=== PATIENT | female | born 1995 | race Caucasian/White ===

== ENCOUNTER 2018-10-17 18:35 | Emergency (ER) | payer MEDICAID, SELFPAY ==
[2018-10-17 18:38] VITALS: BP 136/89; PULSE 112; RESP 18; TEMP 36.8; O2SAT 99
[2018-10-17 18:46] VITALS: RESP 18
--- NOTE | 2018-10-17 19:56 | ED.GENADUL_ITS ---
Discharge Plan Disposition Patient Disposition: HOME Condition: Fair Discharge Details Chief Complaint: GenMedical Clinical Impression: Strep pharyngitis Primary Care Provider: Josiane Eisenberg ED Provider: Zandra Pineda Home Meds and New Rx's Prescriptions: New amoxicillin 500 mg tablet 500 mg PO BID Qty: 20 RF: 0 Continued metformin [Glucophage] 500 mg tablet 500 mg PO BID Qty: 60 RF: 1 Discharge Instructions Instructions: Strep Throat (ED) Additional Instructions: Encourage hydration. Tylenol and ibuprofen as needed for discomfort. Take amoxicillin as prescribed, even if symptoms improve please take the entire course. You may use warm water and honey to help with sore throat as well. If you develop increased pain, inability stay hydrated, increased swelling or other new/worsening symptoms please seek care urgently once again Referrals: Josiane Eisenberg MD [Primary Care Provider] - Discharge Data Discharge Date/Time-TO BE ENTERED AT DEPARTURE: 10/17/18 20:55 Medical Decision Making Patient is a 23-year-old female presents today with chief complaint sore throat. She reports symptoms initially began approximately 1 week ago but had been resolved over the past 4 days. States that when she woke this morning the sore throat had returned and was much worse than previous. Has had subjective fevers. States she has been trying to hydrate although finds this painful. States that she has had some congestion and some postnasal drip but no cough. Denies any ear pain. No chest pain shortness of breath. On exam, she has bilateral tonsillar swelling, erythema and exudate. Uvula is midline, no evidence of peritonsillar mass, no swelling of the tongue. Rapid strep +, UPT - Encouraged hydration. Patient will be placed on amoxicillin. We discussed new/worsening symptoms when to seek care urgently once again. Advise follow-up with primary care if not improving over the next week. Advised that she is contagious, advised that she replace her toothbrush. All of her questions and concerns were addressed and she is in agreement with this plan HPI General Mode of arrival: ambulatory . Date/Time Provider Initiated Documentation: 10/17/18 19:50 . Limitations to Documentation: no limitations . Information obtained by: patient and RN notes reviewed . History of Present Illness 23 year old F presents to the emergency department with the chief complaint of sore throat, described as moderate, with intensity rated at 6. Quality is described as burning, and is localized to the mouth. Patient reports no radiation. Patient started experiencing this day(s) and it has been constant. No relieving factors improve symptom(s), Eating worsens symptoms . Patient notes fever/chills and loss of appetite; denies cough, nausea/vomiting and rash. Patient did receive the following treatments prior to arrival, none Related Data Home Medications Medication Instructions Recorded Confirmed metformin 500 mg tablet 500 mg PO BID #60 tab 02/13/18 02/13/18 amoxicillin 500 mg PO BID #20 tab 10/17/18 Previous Rx's Medication Instructions Recorded metformin 500 mg tablet 500 mg PO BID #60 tab 02/13/18 amoxicillin 500 mg PO BID #20 tab 10/17/18 Allergies Allergy/AdvReac Type Severity Reaction Status Date / Time No Known Allergies Allergy Unverified 02/13/18 15:34 General Stated Complaint: GenMedical ABBI: 4 Review of Systems Constitutional Reports as per HPI, Denies chills, Reports fatigue, Reports fever(s), Denies headache(s) and Reports poor appetite Eyes Reports as per HPI, Denies eye discharge and Denies irritation ENT Reports as per HPI, Denies otalgia, Denies headache(s), Denies lip swelling, Denies nasal discharge, Reports post nasal drip, Denies sinus pain, Denies sinus pressure, Reports sore throat, Denies throat swelling and Denies tongue swelling Cardiovascular Reports as per HPI, Denies chest pain, Denies dyspnea and Denies dyspnea on exertion Respiratory Reports as per HPI, Denies cough, Denies dyspnea, Denies dyspnea on exertion and Denies wheezing Gastrointestinal Reports as per HPI, Denies abdominal pain, Denies change in bowel habits, Denies nausea and Denies vomiting Integumentary/Breasts Reports as per HPI and Denies rash Neurologic Reports as per HPI and Denies headache(s) Endocrine Reports fatigue Allergic/Immunologic Denies lip swelling, Denies throat swelling, Denies tongue swelling and Denies wheezing [facility] Medical History Headache (Acute) History of pre-eclampsia (Acute) Abnormal uterine bleeding Surgical History History of delivery (Chronic) wisdom teeth Family History Father Essential hypertension Mother Depression with anxiety Asthma Social History Smoking/Tobacco Use Status: Current-Occasional Tobacco Type: cigarettes Second Hand Exposure: Yes Alcohol Intake: current Alcohol Intake frequency: holidays/special occasions only Drug use: Rarely Substance use type: does not use and marijuana Adopted: No Household members: significant other and other Details: pt and boyfriend Wali Pets and animals: No Seatbelt use: always Do you feel safe at home: Yes Do you feel safe in your relationship?: Yes Female Reproductive History Menstrual control method: none History History 1 Para Hx # Term Pregnancies 1 Multiple births Hx # Pregnancies Ectopic pregnancies AB induced Hx Number of Living Children AB spontaneous Exam Const General: cooperative, healthy appearing, comfortable, no acute distress, well developed and well groomed Nutritional Appearance: average body habitus and well nourished Orientation: alert and awake HENMT Head: normal to inspection, normocephalic and atraumatic Ears: hearing grossly normal bilaterally, external ears normal and TM's normal bilaterally General nose exam: external nose normal and nares normal Face and sinus: normal facial exam, sinuses nontender and face symmetric Mouth: oral mucosae normal, lip normal, tongue normal, oropharynx normal and moist mucous membranes Teeth and gingiva: dentition normal Throat: uvula midline, abnormal tonsil bilaterally erythema, exudates and hypertrophy, no peritonsillar masses and postnasal drainage Eyes General: appearance normal, both eyes and all related structures Neck Neck: normal visual inspection, full ROM, no lymphadenopathy and no meningeal signs Resp Effort & Inspection: normal respiratory effort, able to speak in complete sentences and no respiratory distress Auscultation: clear to auscultation bilaterally, no rales, no rhonchi and no wheezes Cardio Rate: regular rate Rhythm: regular rhythm Heart Sounds: S1 normal and S2 normal Skin General skin exam: no rashes or lesions noted Neuro General: alert and awake Cognition: normal cognition Speech: speech normal Gait: normal gait Psych Appearance: grossly normal and well kempt Mental Status: mental status grossly normal Speech and Movement: speech and movement normal Course Vital Signs Temperature 36.8 C 10/17/18 18:38 Pulse 112 H 10/17/18 18:38 Respiratory Rate 18 10/17/18 18:38 Blood Pressure 136/89 10/17/18 18:38 Pulse Oximetry 99 10/17/18 18:38 Temperature 36.8 C 10/17/18 18:38 Temperature Source Tympanic 10/17/18 18:38 Pulse 112 H 10/17/18 18:38 Respiratory Rate 18 10/17/18 18:46 Respiratory Effort Non-Labored 10/17/18 18:46 Respiratory Depth Normal 10/17/18 18:46 Respiratory Pattern Normal 10/17/18 18:46 Blood Pressure 136/89 10/17/18 18:38 Blood Pressure Position Sitting 10/17/18 18:38 Pulse Oximetry 99 10/17/18 18:38 Oxygen Delivery Method Room Air 10/17/18 18:38 Oxygen Flow Rate 0 10/17/18 18:38 Pain Level 6 10/17/18 18:38 Lab/Test Results Lab/Test Results: POC Strep Test-DAYDAY(Rapid) Start: 10/17/18 19:43 Freq: Status: Active Protocol: Document 10/17/18 19:55 [place] (Rec: 10/17/18 19:55 [place] [id number]) Strep test-DAYDAY(Rapid)-POC POC-Strep test-DAYDAY (Rapid) Positive POC-Strep test-DAYDAY (Rapid) Positive
[2018-10-17] MEDS: Amoxicillin 500 MG CAP 1000 MG PO (20:54)
== END 2018-10-17 20:55 | disposition home or self-care (01) ==
PROVIDERS: Emergency Provider Physician Assistant; PCP Family Medicine
DX: J02.0 Streptococcal pharyngitis (principal)
CPT/HCPCS: 81025; 87880; 99283

== ENCOUNTER 2019-01-14 14:51 | Outpatient (REF) | payer MEDICAID, SELFPAY ==
[2019-01-16 13:45] LABS: Chlamydia Result Negative; GC Result Negative; Specimen Description URINE
== END 2019-01-14 15:11 ==
LOC: LBN 14:51
PROVIDERS: PCP Family Medicine; Visit Provider Nurse Practitioner Women's Health
DX: Z11.3 Encounter for screening for infections with a predominantly sexual mode of transmission (principal)
CPT/HCPCS: 87491; 87591

== ENCOUNTER 2019-01-25 21:29 | Emergency (ER) | payer MEDICAID, SELFPAY ==
[2019-01-25 21:35] VITALS: BP 145/95; PULSE 112; RESP 18; TEMP 36.8; O2SAT 100
--- NOTE | 2019-01-25 21:47 | ED.GENADUL_ITS ---
Discharge Plan Disposition Patient Disposition: HOME Condition: Stable Discharge Details Chief Complaint: Vascular Clinical Impression: Elevated BP without diagnosis of hypertension Primary Care Provider: Josiane Eisenberg ED Provider: Donis Almanza Home Meds and New Rx's Prescriptions: Continued Nexplanon 68 mg Implant 1 SUBDERMAL RF: 0 Discharge Instructions Additional Instructions: Follow up as scheduled tomorrow with your primary care provider if you develop severe chest pain/pressure, difficulty breathing, weakness, or feel more ill return to the emergency department for reevaluation if you have discomfort from the nexplanon in 1-2 weeks see your obgyn provider Medical Decision Making 23 yo female who denies chronic medical problems comes in with high blood pressure. She has had high blood pressure since September intermittently. She came in tonight because she checked it at home and her bp was 140 so came here. She has no symptoms and has not had any chest pain, dyspnea, n/v, headache, weakness. she has normal neuro exam. Given no symptoms and well appearance do not feel further workup for her htn indicated. HAs an appt tomorrow with her pcp, advised to keep this and if symptoms develop to return to the emergency department Differential Diagnosis essential htn, white coat htn HPI General Mode of arrival: ambulatory . Date/Time Provider Initiated Documentation: 01/25/19 21:29 . Limitations to Documentation: no limitations . Information obtained by: patient . History of Present Illness 23 year old F presents to the emergency department with the chief complaint of high blood pressure, described as moderate, Patient started experiencing this month(s) (5) and it has been intermittent. No relieving factors improve symptom(s), No exacerbating factors reported . Patient notes no other symptoms.. Patient did receive the following treatments prior to arrival, none Related Data Home Medications Medication Instructions Recorded Confirmed Nexplanon 1 SUBDERMAL 01/25/19 Allergies Allergy/AdvReac Type Severity Reaction Status Date / Time No Known Allergies Allergy Unverified 01/25/19 21:40 General Stated Complaint: Vascular ABBI: 4 Review of Systems Review of Systems All systems reviewed & are unremarkable except as noted in HPI and below Constitutional Denies chills, Denies fever(s) and Denies weakness Cardiovascular Denies chest pain and Denies dyspnea Respiratory Denies dyspnea Gastrointestinal Denies abdominal pain, Denies nausea and Denies vomiting Musculoskeletal Denies joint swelling Neurologic Denies weakness PFSH Medical History Abnormal uterine bleeding Irreg menes. Spotting 2-3d ~ every month. Started on Glucophage 06/2016 and became . Elevated BP without diagnosis of hypertension (Acute) Headache (Acute) Onset 02/2017 after bilateral ear infection and severe pre-eclampsia. Daily photo-phobic H/A. Referral to [facility] Neuro prior to . History of pre-eclampsia (Acute) 02/2017. Severe BP. IOL at 34w EGA. intol of labor. PC/S. Rx with antihypertensive med Presence of subdermal contraceptive implant (Acute) Surgical History (Updated 01/14/19 @ 11:30 by Ruth Almanza NP) History of delivery (Resolved) LTCS @ 34w EGA. IOL at [facility] for severe pre-eclampsia. intolerance of labor. wisdom teeth Family History Father Essential hypertension Mother Depression with anxiety Hospitalized for panic attacks. Asthma Social History Smoking/Tobacco Use Status: Current-Occasional Tobacco Type: cigarettes Second Hand Exposure: Yes Alcohol Intake: current Alcohol Intake frequency: holidays/special occasions only Drug use: Rarely Substance use type: does not use and marijuana Adopted: No Household members: significant other and other Details: pt and boyfriend Wali Pets and animals: No Seatbelt use: always Do you feel safe at home: Yes Do you feel safe in your relationship?: Yes Female Reproductive History Menstrual control method: none History History 1 Para Hx # Term Pregnancies 1 Multiple births Hx # Pregnancies Ectopic pregnancies AB induced Hx Number of Living Children AB spontaneous Exam Const General: no acute distress Orientation: alert HENOR Head: normal to inspection Ears: external ears normal General nose exam: external nose normal Mouth: moist mucous membranes Eyes General: appearance normal, both eyes and all related structures Neck Neck: normal visual inspection Resp Effort & Inspection: normal respiratory effort and able to speak in complete sentences Cardio Rate: regular rate Skin General skin exam: no rashes or lesions noted Neuro General: alert and oriented x3 Extrem General: normal to inspection Psych Mental Status: mental status grossly normal Course Vital Signs Temperature 36.8 C 01/25/19 21:35 Pulse 112 H 01/25/19 21:35 Respiratory Rate 18 01/25/19 21:35 Blood Pressure 145/95 H 01/25/19 21:35 Pulse Oximetry 100 01/25/19 21:35 Temperature 36.8 C 01/25/19 21:35 Temperature Source Temporal Artery Scan 01/25/19 21:35 Pulse 112 H 01/25/19 21:35 Respiratory Rate 18 01/25/19 21:35 Blood Pressure 145/95 H 01/25/19 21:35 Blood Pressure Position Sitting 01/25/19 21:35 Pulse Oximetry 100 01/25/19 21:35 Oxygen Delivery Method Room Air 01/25/19 21:35 Oxygen Flow Rate 0 01/25/19 21:35 Pain Level 5 01/25/19 21:35
== END 2019-01-25 22:05 | disposition home or self-care (01) ==
PROVIDERS: Emergency Provider Emergency Medicine; PCP Family Medicine
DX: R03.0 Elevated blood-pressure reading, without diagnosis of hypertension (principal)
CPT/HCPCS: 99281; 99282

== ENCOUNTER 2019-01-26 10:37 | Outpatient (REF) | payer MEDICAID, SELFPAY ==
[2019-01-26 18:28] LABS: HCT 42.4 % (36.0-46.0); HGB 13.7 g/dL (12.0-15.5); Mean Corp. HGB Concentration 32.3 g/dL (32.0-36.0); Mean Corpuscular Hemoglobin 28.9 pg (27.0-33.0); Mean Corpuscular Volume 89.5 fL (80-95); Mean Platelet Volume 10.1 fL (8.0-11.0); Platelet Count 360 x1000/uL (130-400); RBC 4.74 m/cumm (4.00-5.20); RBC Distribution Width 14.5 % (11.7-14.6); White Blood Cell Count 4.65 k/cumm (4.4-10.8)
[2019-01-26 18:49] LABS: ALT 19 U/L (14-59); AST 9 U/L (15-37); Albumin 4.1 g/dL (3.4-5.0); Alkaline Phosphatase 43 U/L (46-116); Anion Gap 9.1 mmol/L (3-11); BUN 12 mg/dL (7-18); Bilirubin, Total 0.5 mg/dL (0.2-1.0); CO2 25.9 mmol/L (21.0-32.0); CREATININE 0.62 mg/dL (0.55-1.02); Calcium 9.1 mg/dL (8.5-10.1); Chloride 104 mmol/L (98-107); Ferritin 25 ng/mL (8-388); Glucose 88 mg/dL (70-100); Potassium 4.5 mmol/L (3.5-5.1); Sodium 139 mmol/L (136-145); TSH (W/Ref FT4) 1.25 uIU/mL (0.36-3.74); Total Protein 7.5 g/dL (6.4-8.2)
[2019-01-26 18:49] LABS: COMMENT (LAB VIEW ONLY) 198.75 mg/dL; Microalb ug/mg Crea 7.5 ug/mg Cr
== END 2019-01-26 10:57 ==
LOC: NCHCN 10:37
PROVIDERS: PCP Family Medicine; Visit Provider Family Medicine
DX: Z87.59 Personal history of other complications of pregnancy, childbirth and the puerperium (principal); R03.0 Elevated blood-pressure reading, without diagnosis of hypertension; R51 Headache; F32.9 Major depressive disorder, single episode, unspecified
CPT/HCPCS: 80053; 85027; 82043; 82570; 82728; 84443

== ENCOUNTER 2020-04-01 22:04 | Outpatient (REF) | payer MEDICAID, SELFPAY | END 2020-04-01 22:24 | LOC: NCHCN 22:04 | PROVIDERS: PCP Family Medicine; Visit Provider Family Medicine | DX: N89.8 Other specified noninflammatory disorders of vagina (principal) | CPT/HCPCS: 87480; 87510; 87660 ==

== ENCOUNTER 2020-05-19 19:56 | Outpatient (REF) | payer MEDICAID, SELFPAY ==
[2020-05-19 19:35] LABS: TSH (W/Ref FT4) 2.07 uIU/mL (0.36-3.74)
[2020-05-19 20:16] LABS: Vitamin D 25 Total 14.5 ng/ml (30-100)
== END 2020-05-19 20:16 ==
LOC: NCHCN 19:56
PROVIDERS: PCP Family Medicine; Visit Provider Nurse Practitioner Family
DX: N97.0 Female infertility associated with anovulation (principal); R53.83 Other fatigue
CPT/HCPCS: 82306; 84443